=== PATIENT | female | born 1990 | race Native Hawaiian/Other Pacific Islander ===

== ENCOUNTER 2016-06-29 17:49 | Inpatient (IN) | payer OTHER ==
[2016-06-29 19:45] LABS: Hematocrit 37.4 % (30.3-42.9); Hemoglobin 12.4 gm/dl (10.1-14.3); Mean Corpuscular HGB Conc 33 % (30-34); Mean Corpuscular Hemoglobin 29 pg (28-32); Mean Corpuscular Volume 86 fl (79-97); Platelet Count 154 K/mm3 (140-440); Red Blood Count 4.34 M/mm3 (3.65-5.03); Red Cell Distribution Width 15.2 % (13.2-15.2); White Blood Count 11.2 K/mm3 (4.5-11.0)
[2016-06-29 20:05] LABS: Bacteria,Urine 1+ /HPF (Negative); Bilirubin,Urine NEG (Negative); Blood,Urine SM (Negative); Ketones,Urine NEG (Negative); Leukocyte Esterase,Urine SM (Negative); Mucus,Urine FEW /HPF; Nitrite,Urine NEG (Negative); Urobilinogen,Urine < 2.0 mg/dL (<2.0)
[2016-06-29 20:07] LABS: Alanine Aminotransferase 14 units/L (7-56); Lactate Dehydrogenase 249 units/L (91-180); Uric Acid 5.1 mg/dL (3.5-7.6)
[2016-06-29] MEDS ORDERED: XYLOCAINE 2% INFILTRATI ONE (22:31)
[2016-06-29] MEDS ORDERED: BRETHINE IVP PRN (22:31)
[2016-06-29] MEDS ORDERED: BRETHINE SUB-Q PRN (22:31)
[2016-06-29] MEDS ORDERED: ePHEDrine SULFATE IV PRN (22:31)
[2016-06-29] MEDS ORDERED: SUBLIMAZE IV PRN (22:31)
[2016-06-29] MEDS ORDERED: POLYCILLIN/NS 2 GM/100 ML 100 ML IV ONE (22:31)
[2016-06-29] MEDS ORDERED: STADOL IV PRN (22:31)
[2016-06-29] MEDS ORDERED: NARCAN 0.4 MG/1 ML IV PRN (22:31)
[2016-06-29] MEDS ORDERED: MINERAL OIL PO PRN (22:31)
[2016-06-29] MEDS ORDERED: ZOFRAN IV PRN (22:31)
[2016-06-29] MEDS ORDERED: MAGNESIUM SULFATE 4GM/100ML 100 ML IV ONE (22:38)
[2016-06-29] MEDS ORDERED: PITOCin/NS 30 UNIT/500ML 500 ML IV SCH ×2 (23:00)
[2016-06-29] MEDS: LACTATED RINGERS 1,000 ML IV SCH (23:20)
[2016-06-29] MEDS: CYTOTEC VAGINAL SCH (23:37)
[2016-06-29] MEDS: MAGNESIUM SULFATE 40GM/1000ML 1,000 ML IV SCH (23:51)
[2016-06-30 00:45] LABS: Hematocrit 36.8 % (30.3-42.9); Hemoglobin 12.2 gm/dl (10.1-14.3); Mean Corpuscular HGB Conc 33 % (30-34); Mean Corpuscular Hemoglobin 28 pg (28-32); Mean Corpuscular Volume 86 fl (79-97); Platelet Count 154 K/mm3 (140-440); Red Blood Count 4.29 M/mm3 (3.65-5.03); Red Cell Distribution Width 14.9 % (13.2-15.2); White Blood Count 11.2 K/mm3 (4.5-11.0)
[2016-06-30] MEDS: AMBIEN PO PRN ×2 (00:59→21:08)
[2016-06-30] MEDS: CYTOTEC VAGINAL SCH (04:15)
[2016-06-30] MEDS ORDERED: PITOCin/NS 30 UNIT/500ML 500 ML IV SCH (06:00)
[2016-06-30] MEDS: POLYCILLIN/NS 1 GM/50 ML 50 ML IV SCH ×4 (07:46→21:10)
[2016-06-30] MEDS: CYTOTEC VG PRN ×2 (10:05→15:21)
--- NOTE | 2016-06-30 11:19 | History and Physical Report ---
History of Present Illness Date of examination: 06/30/16 Date of admission: 06/29/16 21:05 Chief complaint: Pt sent form [facility] for elevated BP. Hx of chronic HTN, diastolics noted to be 110s in triage pa admitted for induction. Past History - Obstetrical History : 2 Medications and Allergies Allergies Allergy/AdvReac Type Severity Reaction Status Date / Time No Known Allergies Allergy Unverified 06/04/16 15:13 Home Medications Medication Instructions Recorded Confirmed Last Taken Type Methyldopa [Aldomet] 500 mg PO BID 06/10/16 06/10/16 06/09/16 19:28 History Vit No.130/Iron/FA 1 tab PO DAILY 06/10/16 06/10/16 06/08/16 21:00 History [ Tablet] 1 tab Active Meds: Active Medications Butorphanol Tartrate (Stadol) 2 mg IV Q2H PRN PRN Reason: Pain , Severe (7-10) Fentanyl (Sublimaze) 100 mcg IV Q2H PRN PRN Reason: Labor Pain Ampicillin Sodium (Polycillin/Ns 1 Gm/50 Ml) 50 mls @ 100 mls/hr IV Q4H MARCO PRN Reason: Protocol Last Admin: 06/30/16 07:46 Dose: 100 mls/hr Lactated Ringer's (Lactated Ringers) 1,000 mls @ 125 mls/hr IV DIRECT MARCO Last Admin: 06/29/16 23:20 Dose: 125 mls/hr Magnesium Sulfate (Magnesium Sulfate 40gm/1000ml) 1,000 mls @ 50 mls/hr IV DIRECT MARCO PRN Reason: 2 GM/HR Last Admin: 06/29/16 23:51 Dose: 50 mls/hr Oxytocin/Sodium Chloride (Pitocin/Ns 20 Unit/1000ml Drip) 1,000 mls @ 125 mls/ hr IV DIRECT MARCO Mineral Oil (Mineral Oil) 30 ml PO QHS PRN PRN Reason: Constipation Misoprostol (Cytotec) 25 mcg VG Q4H PRN PRN Reason: Labor Induction Last Admin: 06/30/16 10:05 Dose: 25 mcg Naloxone HCl (Narcan 0.4 Mg/1 Ml) 0.1 mg IV Q2MIN PRN PRN Reason: Res Rate </= 8 or 02 SAT < 92% Ondansetron HCl (Zofran) 4 mg IV Q8H PRN PRN Reason: Nausea And Vomiting Zolpidem Tartrate (Ambien) 10 mg PO QHS PRN PRN Reason: Insomnia Last Admin: 06/30/16 00:59 Dose: 10 mg Review of Systems All systems: negative - Vital Signs Vital signs: Vital Signs Pulse BP Pulse Ox 197 H 157/114 82 L 06/29/16 18:23 06/29/16 18:23 06/29/16 18:23 Temp Pulse Resp BP Pulse Ox 97.9 F 96 H 16 136/98 97 06/30/16 07:49 06/30/16 11:11 06/30/16 07:49 06/30/16 11:10 06/30/16 11:11 - Physical Exam Breasts: Positive: deferred Cardiovascular: Regular rate, Normal S1, Normal S2 Abdomen: Positive: normal appearance, soft, normal bowel sounds. Negative: distention, tenderness Vulva: both: normal Vagina: Positive: normal moisture. Negative: discharge Cervix: Negative: lesion, discharge Uterus: Positive: normal size, normal contour Adnexa: both: normal Anus/Rectum: Positive: normal perianal skin, heme negative. Negative: rectal mass, hemorrhoids Extremities: Deep Tendon Reflex Grade: Normal +2 - Obstetrical FHR: category 1 Uterine Contraction Monitor Mode: External Cervical Dilatation: 0 Cervical Effacement Percentage: 0 station: -3 Uterine Contraction Pattern: Absent Results Result Diagrams: 06/29/16 23:20 06/29/16 19:14 Abnormal lab results 06/29/16 06/29/16 06/29/16 Range/Units 19:14 19:14 23:20 WBC 11.2 H 11.2 H (4.5-11.0) K/mm3 Creatinine 0.5 L (0.7-1.2) mg/dL Magnesium (1.7-2.3) mg/dL Lactate Dehydrogenase 249 H (91-180) units/L 06/30/16 Range/Units 05:05 WBC (4.5-11.0) K/mm3 Creatinine (0.7-1.2) mg/dL Magnesium 5.3 H (1.7-2.3) mg/dL Lactate Dehydrogenase (91-180) units/L All other labs normal. Assessment and Plan iup at 37 weeks, chronic htn with acute elevation, PIH superimposed.p plan Magnesium sulfate and induction of labor
--- NOTE | 2016-06-30 11:30 | Event Note ---
Date: 06/30/16 pt complaining of pelvic pain. pt denies leg pain. Pt informed in detail of the plan of care. questions answered. Magnesium level is 5.3. current one now pending.
[2016-06-30] MEDS: TYLENOL PO PRN (12:24)
[2016-06-30] MEDS: ALDOMET PO SCH ×2 (14:07→21:08)
[2016-06-30] MEDS: LACTATED RINGERS 1,000 ML IV SCH (15:53)
[2016-06-30] MEDS: MAGNESIUM SULFATE 40GM/1000ML 1,000 ML IV SCH ×2 (17:45→21:10)
[2016-06-30] MEDS: APRESOLINE IV PRN (17:58)
[2016-07-01] MEDS: PITOCin/NS 30 UNIT/500ML 500 ML IV SCH ×6 (02:13→14:42)
[2016-07-01] MEDS: POLYCILLIN/NS 1 GM/50 ML 50 ML IV SCH ×4 (02:13→15:05)
[2016-07-01] MEDS: TYLENOL PO PRN ×2 (04:42→09:56)
[2016-07-01] MEDS: ALDOMET PO SCH ×3 (06:05→22:33)
--- NOTE | 2016-07-01 07:57 | Progress Note ---
Subjective - Subjective Date of service: 07/01/16 Principal diagnosis: iup at term, chronic HTN with superimposed PIH Interval history: pt currently on pitocin, contractions q 2-6 min. Bp diastolics in 90's Patient reports: movement normal, contractions Objective - Vital Signs Vital Signs: Vital Signs - 12hr 06/30/16 06/30/16 06/30/16 19:56 20:01 20:06 Pulse Rate 106 H 101 H 106 H Blood Pressure O2 Sat by Pulse 97 97 97 Oximetry 06/30/16 06/30/16 06/30/16 20:11 20:13 20:16 Pulse Rate 104 H 106 H 106 H Blood Pressure 138/93 O2 Sat by Pulse 97 96 Oximetry 06/30/16 06/30/16 06/30/16 20:21 20:26 20:31 Pulse Rate 105 H 113 H 107 H Blood Pressure O2 Sat by Pulse 97 97 97 Oximetry 06/30/16 06/30/16 06/30/16 20:36 20:41 20:44 Pulse Rate 107 H 107 H 112 H Blood Pressure 137/94 O2 Sat by Pulse 97 97 Oximetry 06/30/16 06/30/16 06/30/16 20:46 20:51 20:56 Pulse Rate 110 H 108 H 109 H Blood Pressure O2 Sat by Pulse 97 97 97 Oximetry 06/30/16 06/30/16 06/30/16 21:01 21:06 21:08 Pulse Rate 107 H 111 H 111 H Blood Pressure 137/94 O2 Sat by Pulse 97 97 Oximetry 06/30/16 06/30/16 06/30/16 21:11 21:13 21:16 Pulse Rate 111 H 109 H 112 H Blood Pressure 142/97 O2 Sat by Pulse 97 97 Oximetry 06/30/16 06/30/16 06/30/16 21:21 21:26 21:31 Pulse Rate 111 H 108 H 107 H Blood Pressure O2 Sat by Pulse 98 97 98 Oximetry 06/30/16 06/30/16 06/30/16 21:36 21:41 21:43 Pulse Rate 108 H 112 H 103 H Blood Pressure 156/104 O2 Sat by Pulse 98 97 Oximetry 06/30/16 06/30/16 06/30/16 21:46 21:51 21:56 Pulse Rate 104 H 111 H 106 H Blood Pressure O2 Sat by Pulse 98 98 97 Oximetry 06/30/16 06/30/16 06/30/16 22:01 22:06 22:11 Pulse Rate 108 H 107 H 106 H Blood Pressure O2 Sat by Pulse 97 97 97 Oximetry 06/30/16 06/30/16 06/30/16 22:13 22:16 22:21 Pulse Rate 111 H 109 H 107 H Blood Pressure 130/89 O2 Sat by Pulse 97 97 Oximetry 06/30/16 06/30/16 06/30/16 22:26 22:31 22:36 Pulse Rate 105 H 107 H 106 H Blood Pressure O2 Sat by Pulse 97 97 97 Oximetry 06/30/16 06/30/16 06/30/16 22:41 22:43 22:46 Pulse Rate 104 H 104 H 105 H Blood Pressure 138/93 O2 Sat by Pulse 97 97 Oximetry 06/30/16 06/30/16 06/30/16 22:51 22:56 23:01 Pulse Rate 102 H 104 H 111 H Blood Pressure O2 Sat by Pulse 97 97 97 Oximetry 06/30/16 06/30/16 06/30/16 23:06 23:11 23:13 Pulse Rate 119 H 123 H 114 H Blood Pressure 141/99 O2 Sat by Pulse 97 98 Oximetry 06/30/16 06/30/16 06/30/16 23:16 23:21 23:26 Pulse Rate 119 H 113 H 107 H Blood Pressure O2 Sat by Pulse 97 97 96 Oximetry 06/30/16 06/30/16 06/30/16 23:31 23:36 23:41 Pulse Rate 107 H 110 H 107 H Blood Pressure O2 Sat by Pulse 96 96 97 Oximetry 06/30/16 06/30/16 06/30/16 23:43 23:46 23:51 Pulse Rate 106 H 114 H 114 H Blood Pressure 154/97 O2 Sat by Pulse 97 97 Oximetry 06/30/16 07/01/16 07/01/16 23:56 00:01 00:06 Pulse Rate 113 H 115 H 102 H Blood Pressure O2 Sat by Pulse 97 97 97 Oximetry 07/01/16 07/01/16 07/01/16 00:11 00:13 00:16 Pulse Rate 107 H 103 H 104 H Blood Pressure 149/94 O2 Sat by Pulse 97 96 Oximetry 07/01/16 07/01/16 07/01/16 00:21 00:26 00:31 Pulse Rate 110 H 107 H 111 H Blood Pressure O2 Sat by Pulse 97 96 97 Oximetry 07/01/16 07/01/16 07/01/16 00:36 00:41 00:43 Pulse Rate 101 H 100 H 100 H Blood Pressure 164/101 O2 Sat by Pulse 96 97 Oximetry 07/01/16 07/01/16 07/01/16 00:46 00:51 00:56 Pulse Rate 101 H 100 H 98 H Blood Pressure O2 Sat by Pulse 96 96 96 Oximetry 07/01/16 07/01/16 07/01/16 01:01 01:06 01:11 Pulse Rate 101 H 113 H 110 H Blood Pressure O2 Sat by Pulse 96 95 97 Oximetry 07/01/16 07/01/16 07/01/16 01:14 01:15 01:16 Pulse Rate 102 H 102 H 109 H Blood Pressure 140/95 145/99 O2 Sat by Pulse 97 Oximetry 07/01/16 07/01/16 07/01/16 01:21 01:26 01:31 Pulse Rate 105 H 104 H 108 H Blood Pressure O2 Sat by Pulse 97 97 97 Oximetry 07/01/16 07/01/16 07/01/16 01:36 01:41 01:43 Pulse Rate 102 H 102 H 111 H Blood Pressure 143/102 O2 Sat by Pulse 97 97 Oximetry 07/01/16 07/01/16 07/01/16 01:46 01:51 01:56 Pulse Rate 103 H 106 H 106 H Blood Pressure O2 Sat by Pulse 97 97 97 Oximetry 07/01/16 07/01/16 07/01/16 02:01 02:06 02:11 Pulse Rate 106 H 109 H 110 H Blood Pressure O2 Sat by Pulse 97 97 97 Oximetry 07/01/16 07/01/16 07/01/16 02:13 02:16 02:21 Pulse Rate 112 H 105 H 107 H Blood Pressure 135/89 O2 Sat by Pulse 97 96 Oximetry 07/01/16 07/01/16 07/01/16 02:26 02:31 02:36 Pulse Rate 111 H 109 H 111 H Blood Pressure O2 Sat by Pulse 97 97 97 Oximetry 07/01/16 07/01/16 07/01/16 02:41 02:43 02:46 Pulse Rate 107 H 105 H 105 H Blood Pressure 140/89 O2 Sat by Pulse 97 97 Oximetry 07/01/16 07/01/16 07/01/16 02:51 02:56 03:01 Pulse Rate 106 H 107 H 107 H Blood Pressure O2 Sat by Pulse 97 97 97 Oximetry 07/01/16 07/01/16 07/01/16 03:06 03:11 03:13 Pulse Rate 106 H 106 H 103 H Blood Pressure 138/86 O2 Sat by Pulse 97 96 Oximetry 07/01/16 07/01/16 07/01/16 03:16 03:21 03:26 Pulse Rate 102 H 113 H 109 H Blood Pressure O2 Sat by Pulse 97 97 97 Oximetry 07/01/16 07/01/16 07/01/16 03:31 03:36 03:41 Pulse Rate 106 H 112 H 107 H Blood Pressure O2 Sat by Pulse 97 97 97 Oximetry 07/01/16 07/01/16 07/01/16 03:44 03:46 03:51 Pulse Rate 111 H 106 H 103 H Blood Pressure 137/89 O2 Sat by Pulse 97 97 Oximetry 07/01/16 07/01/16 07/01/16 03:56 04:01 04:06 Pulse Rate 108 H 101 H 101 H Blood Pressure O2 Sat by Pulse 97 97 97 Oximetry 07/01/16 07/01/16 07/01/16 04:11 04:16 04:21 Pulse Rate 102 H 99 H 101 H Blood Pressure O2 Sat by Pulse 97 96 97 Oximetry 07/01/16 07/01/16 07/01/16 04:26 04:31 04:32 Pulse Rate 99 H 104 H 101 H Blood Pressure 144/97 O2 Sat by Pulse 97 97 Oximetry 07/01/16 07/01/16 07/01/16 04:36 04:41 04:43 Pulse Rate 106 H 106 H 104 H Blood Pressure 152/85 O2 Sat by Pulse 97 97 Oximetry 07/01/16 07/01/16 07/01/16 04:46 04:51 04:56 Pulse Rate 107 H 102 H 106 H Blood Pressure O2 Sat by Pulse 96 97 96 Oximetry 07/01/16 07/01/16 07/01/16 05:01 05:06 05:11 Pulse Rate 98 H 98 H 97 H Blood Pressure O2 Sat by Pulse 96 96 96 Oximetry 07/01/16 07/01/16 07/01/16 05:13 05:16 05:21 Pulse Rate 99 H 98 H 100 H Blood Pressure 142/98 O2 Sat by Pulse 96 97 Oximetry 07/01/16 07/01/16 07/01/16 05:26 05:31 05:36 Pulse Rate 94 H 94 H 96 H Blood Pressure O2 Sat by Pulse 97 97 97 Oximetry 07/01/16 07/01/16 07/01/16 05:41 05:45 05:46 Pulse Rate 95 H 105 H 102 H Blood Pressure 160/98 O2 Sat by Pulse 97 97 Oximetry 07/01/16 07/01/16 07/01/16 05:51 05:56 06:01 Pulse Rate 110 H 104 H 106 H Blood Pressure O2 Sat by Pulse 97 96 97 Oximetry 07/01/16 07/01/16 07/01/16 06:05 06:06 06:11 Pulse Rate 103 H 100 H 104 H Blood Pressure 160/98 O2 Sat by Pulse 97 97 Oximetry 07/01/16 07/01/16 07/01/16 06:14 06:16 06:21 Pulse Rate 100 H 98 H 98 H Blood Pressure 138/92 O2 Sat by Pulse 97 97 Oximetry 07/01/16 07/01/16 07/01/16 06:26 06:31 06:36 Pulse Rate 99 H 96 H 98 H Blood Pressure O2 Sat by Pulse 97 97 97 Oximetry 07/01/16 07/01/16 07/01/16 06:41 06:44 06:46 Pulse Rate 100 H 95 H 100 H Blood Pressure 155/95 O2 Sat by Pulse 97 96 Oximetry 07/01/16 07/01/16 07/01/16 06:51 06:56 07:01 Pulse Rate 100 H 111 H 109 H Blood Pressure O2 Sat by Pulse 97 96 97 Oximetry 07/01/16 07/01/16 07/01/16 07:06 07:11 07:14 Pulse Rate 105 H 109 H 106 H Blood Pressure 154/96 O2 Sat by Pulse 97 96 Oximetry 07/01/16 07/01/16 07/01/16 07:16 07:21 07:26 Pulse Rate 108 H 109 H 98 H Blood Pressure O2 Sat by Pulse 97 97 96 Oximetry 07/01/16 07/01/16 07/01/16 07:31 07:36 07:41 Pulse Rate 98 H 95 H 98 H Blood Pressure O2 Sat by Pulse 96 96 96 Oximetry 07/01/16 07/01/16 07:44 07:46 Pulse Rate 95 H 99 H Blood Pressure 177/106 O2 Sat by Pulse 96 Oximetry - Exam Breasts: deferred Cardiovascular: Regular rate, Normal S1, Normal S2 Lungs: Clear to auscultation Abdomen: Present: normal appearance, soft. Absent: distention, tenderness Vulva: both: normal Uterus: Present: normal FHR: auscultation normal Uterine Contraction Monitor Mode: External Uterine Contraction Pattern: Irregular Uterine Contraction Intensity: Mild Deep Tendon Reflex Grade: Normal +2 - Labs Labs: Abnormal Labs 06/29/16 06/29/16 06/29/16 19:14 19:14 23:20 WBC 11.2 H 11.2 H Creatinine 0.5 L Magnesium Lactate Dehydrogenase 249 H 06/30/16 06/30/16 06/30/16 05:05 11:34 17:12 WBC Creatinine Magnesium 5.3 H 6.3 H 6.6 H Lactate Dehydrogenase 06/30/16 07/01/16 21:10 03:30 WBC Creatinine Magnesium 5.5 H 5.4 H Lactate Dehydrogenase Laboratory Results - last 24 hr 06/30/16 06/30/16 06/30/16 11:34 17:12 21:10 Magnesium 6.3 H 6.6 H 5.5 H 07/01/16 03:30 Magnesium 5.4 H
[2016-07-01] MEDS: LACTATED RINGERS 1,000 ML IV SCH ×2 (08:04→11:07)
[2016-07-01] MEDS: APRESOLINE IV PRN (10:00)
--- NOTE | 2016-07-01 10:20 | Event Note ---
Date: 07/01/16 patient examined and noted to be 80/2. cervix very anterior. Arom clear and fse placed. pt complaining of headache. Bp elevated . hydaliazine given. will continue to monitor closely, currently on pitocin. anticipate , but if Bp continue to worsen will perform c/s.
--- NOTE | 2016-07-01 10:47 | Anesthesia Consultation ---
Anesthesia Consult and Med Hx Date of service: 07/01/16 - Airway Anesthetic Teeth Evaluation: Good ROM Head & Neck: Adequate Mental/Hyoid Distance: Adequate - Pre-Operative Health Status ASA Pre-Surgery Classification: ASA2 Proposed Anesthetic Plan: Epidural, Spinal - Pulmonary Hx Asthma: No COPD: No Hx Pneumonia: No - Cardiovascular System Hx Hypertension: Yes (HTN, PIH) - Central Nervous System Hx Seizures: No Hx Psychiatric Problems: No - Endocrine Hx Renal Disease: No Hx End Stage Renal Disease: No Hx Hypothyroidism: No Hx Hyperthyroidism: No - Hematic Hx Anemia: No Hx Sickle Cell Disease: No - Other Systems Hx Alcohol Use: No
[2016-07-01 10:50] LABS: Hematocrit 37.8 % (30.3-42.9); Hemoglobin 12.3 gm/dl (10.1-14.3); Mean Corpuscular HGB Conc 33 % (30-34); Mean Corpuscular Hemoglobin 28 pg (28-32); Mean Corpuscular Volume 85 fl (79-97); Platelet Count 152 K/mm3 (140-440); Red Blood Count 4.42 M/mm3 (3.65-5.03); Red Cell Distribution Width 15.4 % (13.2-15.2); White Blood Count 12.6 K/mm3 (4.5-11.0)
[2016-07-01] MEDS ORDERED: ePHEDrine SULFATE IV PRN (10:50)
[2016-07-01] MEDS ORDERED: fentaNYL-BUPIV 2 MCG/ML-0.125% 100 ML EPIDURAL SCH (11:00)
[2016-07-01 11:03] LABS: Alanine Aminotransferase 9 units/L (7-56); Lactate Dehydrogenase 269 units/L (91-180); Uric Acid 5.6 mg/dL (3.5-7.6)
[2016-07-01] MEDS ORDERED: CYTOTEC PR ONE (15:49)
[2016-07-01] MEDS ORDERED: ZOFRAN IV PRN (15:51)
[2016-07-01] MEDS ORDERED: DERMOPLAST TP PRN (15:51)
[2016-07-01] MEDS ORDERED: TUCKS PAD TP PRN (15:51)
[2016-07-01] MEDS ORDERED: DULCOLAX PR PRN (15:51)
[2016-07-01] MEDS ORDERED: TYLENOL PO PRN (15:51)
[2016-07-01] MEDS ORDERED: BENADRYL PO PRN (15:51)
[2016-07-01] MEDS ORDERED: LANSINOH TP PRN (15:51)
[2016-07-01] MEDS ORDERED: PHENERGAN PR PRN (15:51)
[2016-07-01] MEDS ORDERED: PHENERGAN PO PRN (15:51)
[2016-07-01] MEDS ORDERED: MILK OF MAGNESIA PO PRN (15:51)
[2016-07-01] MEDS: PITOCin/NS 20 UNIT/1000ML DRIP 1,000 ML IV SCH (15:58)
[2016-07-01] MEDS ORDERED: MAGNESIUM SULFATE 40GM/1000ML 1,000 ML IV SCH (16:00)
[2016-07-01] MEDS ORDERED: SODIUM CHLORIDE FLUSH SYRINGE 10 ML IV NR (16:00)
[2016-07-01] MEDS ORDERED: PITOCin/NS 20 UNIT/1000ML DRIP 1,000 ML IV SCH (16:00)
--- NOTE | 2016-07-01 16:03 | Procedure Note ---
OB Delivery Note - Delivery Date of Delivery: 07/01/16 Surgeon: MAI ROME Estimated blood loss: 200cc - Vaginal Delivery presentation: vertex Delivery position: OA Intrapartum events: none Delivery induction: oxytocin Delivery monitor: internal FHT, internal uterine Route of delivery: Delivery placenta: spontaneous Delivery cord: 3 umbilical vessels Episiotomy: none Delivery laceration: none Anesthesia: epidural - Infant A Gender: Male (wt-6-4oz, apgars 8 & 9. infant and mother tolerated the procedure well)
[2016-07-01] MEDS: MOTRIN PO SCH ×2 (17:10→22:35)
[2016-07-01] MEDS: PERCOCET 5/325 PO PRN ×2 (17:10→20:48)
[2016-07-02] MEDS: PITOCin/NS 20 UNIT/1000ML DRIP 1,000 ML IV SCH (00:40)
[2016-07-02] MEDS: PERCOCET 5/325 PO PRN ×2 (04:27→20:40)
[2016-07-02] MEDS: MOTRIN PO SCH ×4 (04:27→22:00)
[2016-07-02 05:53] LABS: Hematocrit 25.3 % (30.3-42.9); Hemoglobin 8.2 gm/dl (10.1-14.3)
--- NOTE | 2016-07-02 07:29 | Progress Note ---
Assessment and Plan Has been on post mag sulfate over 12 hours. will d/c and transfer to mother baby Subjective - Subjective Date of service: 07/02/16 Principal diagnosis: iup at term- delivered via , chronic HTN with superimposed PIH Interval history: post delivery BP improved 90/50's, pulse in 70's. will d/c mag sulfate. will continue to monitor BP Patient reports: appetite normal, voiding normally, pain well controlled [place]: doing well Objective - Vital Signs Latest vital signs: Vital Signs Temp Pulse Pulse Resp BP BP Pulse Ox 07/02/16 07:13 76 89/52 07/02/16 06:13 77 103/58 07/02/16 05:13 76 95/56 07/02/16 04:20 97.8 F 07/02/16 04:13 79 98/54 07/02/16 03:13 77 93/51 07/02/16 02:13 82 96/53 07/02/16 01:13 87 92/53 07/02/16 00:37 93 H 90/51 07/02/16 00:13 86 88/53 07/01/16 23:13 96 H 92/57 07/01/16 22:13 107 H 95/54 07/01/16 21:00 115 H 107/57 07/01/16 20:46 117 H 122/66 07/01/16 20:30 118 H 134/76 07/01/16 20:15 120 H 119/72 07/01/16 20:00 116 H 125/80 07/01/16 19:46 117 H 126/77 07/01/16 19:30 121 H 113/69 07/01/16 19:16 123 H 111/67 07/01/16 19:00 113 H 124/80 07/01/16 18:45 115 H 119/77 07/01/16 18:30 115 H 121/80 07/01/16 18:16 126 H 120/76 07/01/16 18:00 126 H 126 H 18 136/90 136/90 07/01/16 17:46 112 H 134/91 07/01/16 17:30 115 H 115 H 18 144/104 144/104 07/01/16 17:15 126 H 147/101 07/01/16 17:10 20 07/01/16 17:08 115 H 98 07/01/16 17:03 116 H 98 07/01/16 17:00 110 H 110 H 18 149/105 149/105 98 07/01/16 16:58 111 H 98 07/01/16 16:53 112 H 98 07/01/16 16:48 112 H 99 07/01/16 16:45 104 H 104 H 18 165/108 165/108 99 07/01/16 16:43 105 H 95 07/01/16 16:38 104 H 98 07/01/16 16:33 115 H 98 07/01/16 16:30 107 H 107 H 18 155/108 155/108 98 07/01/16 16:28 109 H 97 07/01/16 16:23 108 H 98 07/01/16 16:18 105 H 98 07/01/16 16:15 103 H 110 H 18 149/105 149/105 97 07/01/16 16:13 112 H 97 07/01/16 16:08 105 H 97 07/01/16 16:03 109 H 97 07/01/16 16:00 122 H 108 H 18 143/98 143/98 97 07/01/16 15:59 92 H 83 L 07/01/16 15:58 115 H 98 07/01/16 15:53 102 H 97 07/01/16 15:48 111 H 97 07/01/16 15:46 118 H 145/99 07/01/16 15:45 98.3 F 110 H 18 145/99 97 07/01/16 15:31 112 H 168/108 07/01/16 15:29 113 H 93 07/01/16 15:27 113 H 97 07/01/16 15:22 107 H 96 07/01/16 15:17 109 H 160/103 96 07/01/16 15:12 105 H 97 07/01/16 15:07 104 H 98 07/01/16 15:02 104 H 97 07/01/16 15:01 96 H 162/104 07/01/16 14:57 104 H 98 07/01/16 14:52 99 H 98 07/01/16 14:47 90 97 07/01/16 14:46 92 H 134/88 07/01/16 14:42 87 97 07/01/16 14:38 105 H 121/74 07/01/16 14:37 84 96 07/01/16 14:32 85 96 07/01/16 14:30 82 121/74 07/01/16 14:27 89 96 07/01/16 14:22 85 97 07/01/16 14:17 88 96 07/01/16 14:15 86 117/77 07/01/16 14:12 86 96 07/01/16 14:07 82 96 07/01/16 14:02 88 95 07/01/16 14:01 83 114/76 07/01/16 13:57 87 96 07/01/16 13:52 83 96 07/01/16 13:47 84 96 07/01/16 13:45 88 115/73 07/01/16 13:42 85 97 07/01/16 13:37 87 96 07/01/16 13:32 85 96 07/01/16 13:30 86 110/69 07/01/16 13:27 86 96 07/01/16 13:22 91 H 96 07/01/16 13:17 90 97 07/01/16 13:15 85 119/74 07/01/16 13:12 96 H 97 07/01/16 13:07 90 97 07/01/16 13:02 94 H 97 07/01/16 13:00 93 H 123/77 07/01/16 12:57 97 H 97 07/01/16 12:52 95 H 97 07/01/16 12:47 98 H 97 07/01/16 12:45 97 H 129/81 07/01/16 12:42 97 H 97 07/01/16 12:37 96 H 97 07/01/16 12:32 98 H 97 07/01/16 12:31 98 H 125/79 07/01/16 12:27 104 H 97 07/01/16 12:22 100 H 97 07/01/16 12:17 106 H 18 113/67 97 07/01/16 12:15 105 H 113/67 07/01/16 12:12 103 H 97 07/01/16 12:07 110 H 97 07/01/16 12:02 108 H 96 07/01/16 12:00 103 H 115/62 07/01/16 11:57 104 H 96 07/01/16 11:55 108 H 111/59 07/01/16 11:52 108 H 97 07/01/16 11:50 115 H 109/56 07/01/16 11:48 116 H 108/55 07/01/16 11:47 117 H 97 07/01/16 11:46 112 H 118/66 07/01/16 11:44 123 H 113/60 07/01/16 11:42 126 H 118/66 96 07/01/16 11:40 114 H 127/75 07/01/16 11:39 117 H 126/79 07/01/16 11:37 114 H 98 07/01/16 11:32 101 H 98 07/01/16 11:30 98.1 F 110 H 105 H 18 172/102 172/102 98 07/01/16 11:27 105 H 99 07/01/16 11:17 92 H 97 07/01/16 11:13 90 162/111 07/01/16 11:12 94 H 97 07/01/16 11:08 76 84 07/01/16 11:07 98 H 97 07/01/16 11:02 99 H 98 07/01/16 11:01 92 H 159/109 07/01/16 10:57 99 H 98 07/01/16 10:52 97 H 97 07/01/16 10:47 94 H 97 07/01/16 10:43 99 H 159/109 93 07/01/16 10:42 93 H 97 07/01/16 10:37 103 H 98 07/01/16 10:32 99 H 99 07/01/16 10:27 101 H 97 07/01/16 10:22 99 H 98 07/01/16 10:17 103 H 97 07/01/16 10:14 100 H 165/112 93 07/01/16 10:12 111 H 97 07/01/16 10:07 120 H 99 07/01/16 10:02 103 H 98 07/01/16 10:00 101 H 165/111 07/01/16 09:57 103 H 97 07/01/16 09:52 103 H 97 07/01/16 09:47 96 H 96 07/01/16 09:45 102 H 165/111 07/01/16 09:43 108 H 91 07/01/16 09:42 98 H 96 07/01/16 09:37 93 H 96 07/01/16 09:32 99 H 96 07/01/16 09:27 97 H 95 07/01/16 09:22 95 H 95 07/01/16 09:17 93 H 96 07/01/16 09:13 94 H 165/103 07/01/16 09:12 94 H 96 07/01/16 09:11 81 93 07/01/16 09:06 94 H 96 07/01/16 09:01 102 H 96 07/01/16 08:56 104 H 97 07/01/16 08:52 106 H 84 07/01/16 08:51 100 H 96 07/01/16 08:46 101 H 97 07/01/16 08:44 96 H 157/99 07/01/16 08:43 97 H 91 07/01/16 08:41 106 H 97 07/01/16 08:36 106 H 96 07/01/16 08:35 59 L 89 07/01/16 08:31 100 H 96 07/01/16 08:26 107 H 97 07/01/16 08:21 99 H 98 07/01/16 08:16 104 H 97 07/01/16 08:13 108 H 147/98 07/01/16 08:11 104 H 97 07/01/16 08:08 98.2 F 105 H 108 H 18 142/88 142/88 98 07/01/16 08:06 102 H 98 07/01/16 07:56 103 H 97 07/01/16 07:52 100 H 156/93 07/01/16 07:51 109 H 97 07/01/16 07:46 99 H 96 07/01/16 07:44 95 H 177/106 07/01/16 07:41 98 H 96 07/01/16 07:36 95 H 96 07/01/16 07:31 98 H 96 07/01/16 07:26 98 H 96 Intake and Output 07/01/16 07/02/16 07/02/16 22:59 06:59 14:59 Intake Total 50 1390 Output Total 300 290 Balance -250 1100 Intake: IV 50 1390 Polycillin/Ns 1 gm/50 ml 50 50 ml @ 100 mls/hr IV Q4H [facility] Rx#:[id number] PITOCin/NS 20 UNIT/1000ML 1315 DRIP 1,000 ML @ 125 mls/ hr IV DIRECT [facility] Rx#: [id number] Magnesium Sulfate 40Gm/ 75 1000ML 1,000 ml @ 1 GM/HR 25 mls/hr IV DIRECT [facility] Rx#:[id number] Oral 0 Output: Urine 300 290 Indwelling Catheter 300 290 Other: Total, Intake Amount 0 Total, Output Amount 300 50 Estimated Blood Loss 200 - Exam Breasts: Present: deferred Cardiovascular: Present: Regular rate, Normal S1, Normal S2 Lungs: Present: Clear to auscultation Abdomen: Present: normal appearance, soft Vulva: both: normal Uterus: Present: normal, firm Extremities: Present: normal Deep Tendon Reflex Grade: Normal +2 Incision: Present: normal, dry, intact - Labs Labs: Abnormal lab results 07/01/16 07/01/16 07/01/16 Range/Units 09:30 10:35 10:35 WBC 12.6 H (4.5-11.0) K/mm3 Hgb (10.1-14.3) gm/dl Hct (30.3-42.9) % RDW 15.4 H (13.2-15.2) % Creatinine 0.6 L (0.7-1.2) mg/dL Magnesium 5.4 H (1.7-2.3) mg/dL Lactate Dehydrogenase 269 H (91-180) units/L 07/01/16 07/02/16 07/02/16 Range/Units 19:55 00:00 05:30 WBC (4.5-11.0) K/mm3 Hgb 8.2 L D (10.1-14.3) gm/dl Hct 25.3 L D (30.3-42.9) % RDW (13.2-15.2) % Creatinine (0.7-1.2) mg/dL Magnesium 5.1 H 5.4 H (1.7-2.3) mg/dL Lactate Dehydrogenase (91-180) units/L 07/02/16 Range/Units 05:30 WBC (4.5-11.0) K/mm3 Hgb (10.1-14.3) gm/dl Hct (30.3-42.9) % RDW (13.2-15.2) % Creatinine (0.7-1.2) mg/dL Magnesium 5.6 H (1.7-2.3) mg/dL Lactate Dehydrogenase (91-180) units/L
[2016-07-02] MEDS: ALDOMET PO SCH ×2 (10:18→22:00)
--- NOTE | 2016-07-02 19:20 | Discharge Summary ---
Providers - Providers Date of Admission: 06/29/16 21:05 Date of discharge: 07/03/16 Attending physician: MAI ROME Primary care physician: MAI ROME Hospitalization Reason for admission: induction of labor Delivery: Procedure details: s/p after induction for PIH. pt did well. Episiotomy: none Laceration: none Other procedures: none complications: none Discharge diagnosis: IUP at term delivered [place] baby: male Hospital course: s/p magnesuim treatment, and hydraline prn for blood pressure Condition at discharge: Good Disposition: DISCHARGED TO HOME OR SELFCARE - Discharge Diagnoses (1) Hypertension affecting Status: Acute (2) (normal spontaneous vaginal delivery) Status: Acute (3) Anemia Status: Acute Comment: anemia secondary to acute blood loss from delivery Plan - Discharge Medications Prescriptions: Ferrous Sulfate [Feosol 325 MG tab] 325 mg PO BID #60 tablet Ibuprofen [Motrin 800 MG tab] 800 mg PO Q8HR PRN #30 tablet PRN Reason: Pain Methyldopa [Aldomet] 500 mg PO BID #60 tablet oxyCODONE /ACETAMINOPHEN [Percocet 5/325] 1 tab PO Q6HR PRN #30 tablet PRN Reason: Pain - Provider Discharge Summary Activity: routine, no sex for 6 weeks, no heavy lifting 4 weeks, no strenuous exercise Diet: routine Instructions: routine Additional instructions: [] Smoking cessation referral if applicable(refer to patient education folder for contact #) [] Refer to [facility]'s [facility] Booklet Call your doctor immediately for: * Fever > 100.5 * Heavy vaginal bleeding ( >1 pad per hour) * Severe persistent headache * Shortness of breath * Reddened, hot, painful area to leg or breast * Drainage or odor from incision. * Keep incision clean and dry at all times and follow doctor's instructions regarding bathing/showering - Follow up plan Follow up: MAI ROME MD [Primary Care Provider] - 7 Days
[2016-07-03] MEDS: MOTRIN PO SCH (04:00)
[2016-07-03] MEDS ORDERED: BOOSTRIX IM ONE (06:30)
[2016-07-03 10:25] VITALS: BP 128/80
[2016-07-03] MEDS: ALDOMET PO SCH (11:00)
== END 2016-07-03 11:30 | disposition home or self-care (01) | DRG 774 ==
LOC: TRG 17:49 → APU 21:05 → LD 22:42 → OB 07-02 08:05
PROVIDERS: ADMIT Specialist; ATTEND Specialist
PROC: 10E0XZZ Delivery of Products of Conception, External Approach (ICD-10-PCS; principal; 2016-07-01)
PROC: 3E033VJ Introduction of Other Hormone into Peripheral Vein, Percutaneous Approach (ICD-10-PCS; 2016-07-01)
PROC: 10907ZC Drainage of Amniotic Fluid, Therapeutic from Products of Conception, Via Natural or Artificial Opening (ICD-10-PCS; 2016-07-01)
PROC: 3E0S3CZ (ICD-10-PCS; 2016-07-01)
PROC: 00HU33Z Insertion of Infusion Device into Spinal Canal, Percutaneous Approach (ICD-10-PCS; 2016-07-01)
DX: O13.4 Gestational [pregnancy-induced] hypertension without significant proteinuria, complicating childbirth (principal); D62 Acute posthemorrhagic anemia; O10.92 Unspecified pre-existing hypertension complicating childbirth; O90.81 Anemia of the puerperium; Z3A.37 37 weeks gestation of pregnancy; Z37.0 Single live birth
CPT/HCPCS: 36415; 81001; 82565; 83615; 83735; 84450; 84460; 84550; 85014; 85018; 85027; 86850; 86900; 86901; 88307; 90471; 90715; A6250; J0290; J0360; J2405; J2590; J3475; J7120

== ENCOUNTER 2021-11-19 15:58 | Observation (INO) | payer OTHER ==
[2021-11-19] MEDS ORDERED: ONDANSETRON 4 MG/2 ML INJ IV ONE (18:52)
[2021-11-19] MEDS ORDERED: SODIUM CHLORIDE 0.9% 1000 ML 1,000 ML IV ONE (18:52)
--- NOTE | 2021-11-19 19:02 | Emergency Department Report ---
ED HPI - General Chief complaint: High BP Stated complaint: HBP/18WKS Time Seen by Provider: 11/19/21 18:50 Source: patient Mode of arrival: Ambulatory Limitations: No Limitations - History of Present Illness Initial comments: 31 yo F at 18 weeks gestation who present with elevated blood pressure that is been going on for the last 4 days and progressively getting worse. Pt was seen at a clinic where she was started on Nifedipine 30 mg daily which she says has not help her blood pressure. She also reports front headache as well. She also reports nausea and vomiting as she could not hold or tolerated any meal since yesterday. No fever or chills reported. Pt says she just find out that she was 3 weeks ago because she was currently on depo shots. No other modifying or associated factors reported. - Related Data Home Medications Medication Instructions Recorded Confirmed Last Taken Methyldopa (Nf) [Aldomet] 500 mg PO BID 06/10/16 07/01/16 06/29/16 13:00 500 Vit No.130/Iron/Folic 1 tab PO DAILY 06/10/16 07/01/16 06/28/16 09:00 [ Tablet] 1 Previous Rx's Medication Instructions Recorded Last Taken Type Ferrous Sulfate [Feosol 325 MG tab] 325 mg PO BID #60 tablet 07/01/16 Unknown Rx Ibuprofen [Motrin 800 MG tab] 800 mg PO Q8HR PRN #30 tablet 07/01/16 Unknown Rx Methyldopa (Nf) [Aldomet] 500 mg PO BID #60 tablet 07/01/16 Unknown Rx oxyCODONE /ACETAMINOPHEN [Percocet 1 tab PO Q6HR PRN #30 tablet 07/01/16 Unknown Rx 5/325] Allergies Allergy/AdvReac Type Severity Reaction Status Date / Time No Known Allergies Allergy Verified 11/19/21 16:23 ED Review of Systems ROS: Stated complaint: HBP/18WKS Other details as noted in HPI Comment: All other systems reviewed and negative Gastrointestinal: other () Neurological: headache ED Past Medical Hx - Past Medical History Previous Medical History?: Yes Hx Hypertension: Yes (HTN, PIH) Hx Congestive Heart Failure: No Hx Diabetes: No Hx Renal Disease: No Hx Sickle Cell Disease: No Hx Seizures: No Hx Asthma: No Hx COPD: No - Social History Smoking Status: Never Smoker - Medications Home Medications: Home Medications Medication Instructions Recorded Confirmed Last Taken Type Methyldopa (Nf) [Aldomet] 500 mg PO BID 06/10/16 07/01/16 06/29/16 13:00 History 500 Vit No.130/Iron/Folic 1 tab PO DAILY 06/10/16 07/01/16 06/28/16 09:00 History [ Tablet] 1 Ferrous Sulfate [Feosol 325 MG tab] 325 mg PO BID #60 tablet 07/01/16 Unknown Rx Ibuprofen [Motrin 800 MG tab] 800 mg PO Q8HR PRN #30 tablet 07/01/16 Unknown Rx Methyldopa (Nf) [Aldomet] 500 mg PO BID #60 tablet 07/01/16 Unknown Rx oxyCODONE /ACETAMINOPHEN [Percocet 1 tab PO Q6HR PRN #30 tablet 07/01/16 Unknown Rx 5/325] ED Physical Exam - General Limitations: No Limitations General appearance: alert, in distress (due to pain ) - Head Head exam: Present: normal inspection - Eye Eye exam: Present: normal appearance Pupils: Present: normal accommodation - ENT ENT exam: Present: normal exam, normal orophraynx - Neck Neck exam: Present: normal inspection, full ROM. Absent: tenderness - Respiratory Respiratory exam: Present: normal lung sounds bilaterally. Absent: respiratory distress, accessory muscle use - Cardiovascular Cardiovascular Exam: Present: regular rate, normal rhythm, normal heart sounds - GI/Abdominal GI/Abdominal exam: Present: soft, normal bowel sounds, other ( with 18 cm ). Absent: distended, tenderness - Extremities Exam Extremities exam: Present: normal inspection, full ROM, normal capillary refill. Absent: tenderness, pedal edema, joint swelling - Back Exam Back exam: Present: normal inspection. Absent: tenderness, CVA tenderness (R), CVA tenderness (L) - Neurological Exam Neurological exam: Present: alert, oriented X3 - Psychiatric Psychiatric exam: Present: normal affect, normal mood - Skin Skin exam: Present: warm, normal color ED Course Vital Signs 11/19/21 11/19/21 11/19/21 16:18 20:08 20:09 Temperature 98.6 F Pulse Rate 99 H 79 79 Respiratory 14 16 Rate Blood Pressure 172/100 178/115 Blood Pressure 178/115 [Right] O2 Sat by Pulse 100 99 Oximetry - Reevaluation(s) Reevaluation #1: 11/19/21 19:09 here with [facility] and elevated blood pressure at 172/100 -- this is concerning for not limited to preeclampsia, migraine headache, gastroenteritis, and threatened --ectopic is unlikely as patient had [facility]-- will go ahead and order routine labs that includes CBC, CMP for electrolytes and LFTs, urinalysis for any infectious process. We will also check serum beta hCG and start patient on labetalol 20 mg for the hypertension and morphine for the headache. We also consulted [facility] for further evaluation and admission consideration. 11/19/21 19:12 Reevaluation #2: 11/19/21 20:44 Patient reports improvement in headache after giving the pain medication. Blood pressure is slightly better now at 164/110 mmHg. Lab reviewed and noted with slightly elevated white count at 16.3 which could be reactive also H&H of 15.4/47.6--patient is also noted with normal platelets and liver enzymes. At this point [facility] will be consulted for likely admission for blood pressure control. Reevaluation #3: 11/19/21 21:[address] Dawkins who suggested talking to whoever the initial Oral Surgery Physician that the patient is established with. Pt reports that she had seen Dr Fairchild. So Dr Fairchild will be contacted for further treatment of this hypertensive urgency. I paged Dr Fairchild who accept pt for further evaluation and treatment of her uncontrolled hypertension. She also informed me that patient has chronic hypertension and was on Metoprolol before she find out she was and that was changed to Nifedipine 30 mg PO daily. ED Medical Decision Making - Lab Data Result diagrams: 11/19/21 19:11 11/19/21 19:11 - EKG Data -: EKG Interpreted by Me EKG shows normal: sinus rhythm Rate: normal - EKG Data 11/19/21 19:18 Noted with normal sinus rhythm at a rate of 95 bpm, normal QTC with no ST elevation or depression in this normal ECG. Critical care attestation.: If time is entered above; I have spent that time in minutes in the direct care of this critically ill patient, excluding procedure time. ED Disposition Clinical Impression: Hypertensive urgency, Second trimester Preeclampsia Qualifiers: Trimester: second trimester Qualified Code(s): O14.92 - Unspecified pre- eclampsia, second trimester Migraine headache Qualifiers: Migraine type: unspecified Status migrainosus presence: without status migrainosus Intractability: not intractable Qualified Code(s): G43.909 - Migraine, unspecified, not intractable, without status migrainosus Disposition: 09 ADMITTED INPATIENT Is pt being admited?: No Does the pt Need Aspirin: No Condition: Stable Instructions: Hypertension (ED) Referrals: AVA FERGUSON MD [Primary Care Provider] - 3-5 Days Time of Disposition: 21:27 (Dr Fairchild accept pt for further evaluation and treatment )
[2021-11-19 19:37] LABS: Hematocrit 47.6 % (30.3-42.9); Hemoglobin 15.4 gm/dl (10.1-14.3); Mean Corpuscular HGB Conc 32 % (30-34); Mean Corpuscular Volume 88 fl (79-97); Red Blood Count 5.38 M/mm3 (3.65-5.03); Red Cell Distribution Width 14.5 % (13.2-15.2)
[2021-11-19 19:42] LABS: Platelet Count 257 K/mm3 (140-440)
[2021-11-19 19:46] LABS: INR 0.82 (0.87-1.13)
[2021-11-19 19:47] LABS: Partial Thromboplastin Time 24.7 Sec. (24.2-36.6)
[2021-11-19 20:00] LABS: Alanine Aminotransferase 18 units/L (7-56); Albumin 4.3 g/dL (3.9-5); Blood Urea Nitrogen 7 mg/dL (7-17); Calcium 9.3 mg/dL (8.4-10.2); Hemolysis Index 254
[2021-11-19 20:13] LABS: BUN/Creatinine Ratio 18
[2021-11-19 20:40] LABS: Total Cells Counted 100
[2021-11-19 20:41] LABS: Basophils % (Manual) 0 % (0.0-1.8); Eosinophils % (Manual) 0 % (0.0-4.3)
[2021-11-19 20:42] LABS: Large Platelets Few; RBC Morphology Normal
[2021-11-19 20:43] LABS: Platelet Estimate Cons
[2021-11-19] MEDS ORDERED: hydrALAZINE 20 MG/1 ML INJ IV PRN (21:56)
[2021-11-19] MEDS ORDERED: ACETAMINOPHEN 325 MG TAB PO PRN (21:58)
[2021-11-19] MEDS ORDERED: LACTATED RINGERS 1,000 ML IV SCH (22:00)
[2021-11-19] MEDS: NIFEdipine XL 60 MG TAB PO SCH (22:36)
[2021-11-19 23:13] LABS: Bilirubin,Urine NEG (Negative); Blood,Urine NEG (Negative); Color,Urine Yellow (Yellow); Mucus,Urine FEW /HPF; Protein,Urine <15 mg/dL mg/dL (Negative); Urobilinogen,Urine < 2.0 mg/dL (<2.0)
[2021-11-19 23:43] LABS: Amphetamine Screen,Urine PRESUMPTIVE NEGATIVE; Benzodiazepines Screen,Urine PRESUMPTIVE NEGATIVE; Cannabinoid Screen,Urine PRESUMPTIVE NEGATIVE; Cocaine Screen,Urine PRESUMPTIVE NEGATIVE; Methadone Screen,Urine PRESUMPTIVE NEGATIVE; Opiate Screen,Urine PRESUMPTIVE NEGATIVE
[2021-11-20] MEDS: NIFEdipine XL 60 MG TAB PO SCH (10:17)
[2021-11-20 12:38] VITALS: BP 126/83
--- NOTE | 2021-11-20 12:47 | History and Physical Report ---
History of Present Illness Date of examination: 11/20/21 Date of admission: 11/19/21 21:55 Chief complaint: headache, blood pressure History of present illness: Pt is a 31 year old SARAH 04/[birth year]/22 at 18w0d by 17 wk tushar who presents with headache and elevated blood pressure at home. This patient has a h/o chronic hypertension previously on lisinopril until she discovered her in early October when she stopped it. She was given Procardia XL 30 mg by her PCP on November 18, 2021. She took the first dose that evening, but on the morning of November she developed headache. She checked her blood pressure and found it to be elevated and presented to the ED. She has had one visit this week, with finding of oligohydramnios on ultrasound with [facility] appt scheduled for 11/29/21. Her headache has resolved and she is asking to go home and complete her 24 hour urine at home as discussed prior to this hospitalization. Past History Past Medical History: hypertension Past Surgical History: cholecystectomy Family/Genetic History: other (kidney disease ) Social history: - Obstetrical History Expected Date of Delivery: 04/23/22 Actual Gestation: 18 Week(s) 0 Day(s) : 3 Para: 2 Hx # Term Pregnancies: 2 Number of Pregnancies: 0 Spontaneous Abortions: 0 Induced : 0 Number of Living Children: 2 Medications and Allergies Allergies Allergy/AdvReac Type Severity Reaction Status Date / Time No Known Allergies Allergy Verified 11/19/21 16:23 Home Medications Medication Instructions Recorded Confirmed Last Taken Type Methyldopa (Nf) [Aldomet] 500 mg PO BID 06/10/16 07/01/16 06/29/16 13:00 History 500 Vit No.130/Iron/Folic 1 tab PO DAILY 06/10/16 07/01/16 06/28/16 09:00 History [ Tablet] 1 Ferrous Sulfate [Feosol 325 MG tab] 325 mg PO BID #60 tablet 07/01/16 Unknown Rx Ibuprofen [Motrin 800 MG tab] 800 mg PO Q8HR PRN #30 tablet 07/01/16 Unknown Rx Methyldopa (Nf) [Aldomet] 500 mg PO BID #60 tablet 07/01/16 Unknown Rx oxyCODONE /ACETAMINOPHEN [Percocet 1 tab PO Q6HR PRN #30 tablet 07/01/16 Unknown Rx 5/325] NIFEdipine XL [Procardia Xl] 60 mg PO Q12HR #60 tab 11/20/21 Unknown Rx Active Meds: Active Medications Acetaminophen (Acetaminophen 325 Mg Tab) 650 mg PO Q4H PRN PRN Reason: Headache Last Admin: 11/20/21 10:17 Dose: 650 mg Hydralazine HCl (Hydralazine 20 Mg/1 Ml Inj) 5 mg IV Q30MIN PRN PRN Reason: Hypertension Lactated Ringer's (Lactated Ringers) 1,000 mls @ 125 mls/hr IV DIRECT MARCO Last Admin: 11/20/21 01:46 Dose: 125 mls/hr Nifedipine (Nifedipine Xl 60 Mg Tab) 60 mg PO Q12HR [facility] Last Admin: 11/20/21 10:17 Dose: 60 mg Review of Systems All systems: negative - Vital Signs Vital signs: Vital Signs Temp Pulse Resp BP Pulse Ox 98.6 F 99 H 14 172/100 100 11/19/21 16:18 11/19/21 16:18 11/19/21 16:18 11/19/21 16:18 11/19/21 16:18 Temp Pulse Resp BP Pulse Ox 97.9 F 96 H 16 126/83 97 11/20/21 07:59 11/20/21 12:37 11/20/21 07:59 11/20/21 12:37 11/20/21 12:36 - Physical Exam Breasts: Positive: deferred Abdomen: Positive: soft (gravid ) Uterus: Positive: enlarged (gravid ) Extremities: Positive: normal - Obstetrical FHR: auscultation normal Uterine Tone Measurement Phase: Resting Results Result Diagrams: 11/19/21 19:11 11/19/21 19:11 Abnormal lab results 11/19/21 11/19/21 11/19/21 Range/Units 19:11 19:11 19:11 WBC 16.3 H (4.5-11.0) K/mm3 RBC 5.38 H (3.65-5.03) M/mm3 Hgb 15.4 H (10.1-14.3) gm/dl Hct 47.6 H (30.3-42.9) % Seg Neuts % (Manual) 87.0 H (40.0-70.0) % Lymphocytes % (Manual) 12.0 L (13.4-35.0) % Seg Neutrophils # Man 14.2 H (1.8-7.7) K/mm3 INR 0.82 L (0.87-1.13) Sodium 132 L (137-145) mmol/L Potassium 5.2 H (3.6-5.0) mmol/L Chloride 94.7 L (98-107) mmol/L Creatinine 0.4 L (0.6-1.2) mg/dL Total Protein 8.4 H (6.3-8.2) g/dL All other labs normal. Assessment and Plan A: IUP at 18w0d Chronic Hypertension now Procardia XL 60 mg BID Headache resolved P: Discharge home with follow up in office on Monday11/22/21
--- NOTE | 2021-11-20 12:53 | Short Stay Summary ---
Short Stay Documentation Date of service: 11/20/21 - History H&P: dictated Social history: - Allergies and Medications Current Medications: Allergies No Known Allergies Allergy (Verified 11/19/21 16:23) Home Medications Medication Instructions Recorded Confirmed Last Taken Type Methyldopa (Nf) [Aldomet] 500 mg PO BID 06/10/16 07/01/16 06/29/16 13:00 History 500 Vit No.130/Iron/Folic 1 tab PO DAILY 06/10/16 07/01/16 06/28/16 09:00 History [ Tablet] 1 Ferrous Sulfate [Feosol 325 MG tab] 325 mg PO BID #60 tablet 07/01/16 Unknown Rx Ibuprofen [Motrin 800 MG tab] 800 mg PO Q8HR PRN #30 tablet 07/01/16 Unknown Rx Methyldopa (Nf) [Aldomet] 500 mg PO BID #60 tablet 07/01/16 Unknown Rx oxyCODONE /ACETAMINOPHEN [Percocet 1 tab PO Q6HR PRN #30 tablet 07/01/16 Unknown Rx 5/325] NIFEdipine XL [Procardia Xl] 60 mg PO Q12HR #60 tab 11/20/21 Unknown Rx Active Medications Acetaminophen (Acetaminophen 325 Mg Tab) 650 mg PO Q4H PRN PRN Reason: Headache Last Admin: 11/20/21 10:17 Dose: 650 mg Hydralazine HCl (Hydralazine 20 Mg/1 Ml Inj) 5 mg IV Q30MIN PRN PRN Reason: Hypertension Lactated Ringer's (Lactated Ringers) 1,000 mls @ 125 mls/hr IV DIRECT MARCO Last Admin: 11/20/21 01:46 Dose: 125 mls/hr Nifedipine (Nifedipine Xl 60 Mg Tab) 60 mg PO Q12HR [facility]CO Last Admin: 11/20/21 10:17 Dose: 60 mg - Physical exam Breasts: deferred - Brief post op/procedure progress note Condition: stable - Hospital course Hospital course: This patient was admitted with headache and elevated blood pressure is an 18 weeks . She was started on Procardia XL 60 mg twice daily with normali zation in her blood pressure. Her headache resolved. An administrative error was noted with an incorrect documentation of the start time of the 24-hour urine collection. The patient asked to complete the 24-hour urine outpatient. She will be discharged home with a new prescription for Procardia XL 60 mg every 12 with follow-up in 2 days in the office. - Disposition Condition at discharge: Stable Disposition: 01 HOME / SELF CARE / HOMELESS - Discharge Diagnoses (1) Second trimester Status: Acute (2) Hypertension affecting Status: Acute Qualifiers: Trimester: second trimester Qualified Code(s): O16.2 - Unspecified maternal hypertension, second trimester Short Stay Discharge Plan Activity: no restrictions Weight Bearing Status: Full Weight Bearing Diet: regular Follow up with: AVA FERGUSON MD [Primary Care Provider] - 3-5 Days ERICA DOBBS MD [Staff Physician] - 11/22/21 Prescriptions: NIFEdipine XL [Procardia Xl] 60 mg PO Q12HR #60 tab
--- NOTE | 2021-11-23 12:12 | Electrocardiograph Report ---
[facility] Test Date: 2021-11-19 Test Time: 18:37:01 Pat Name: PAULY OLIVARES Department: Room: 2004 06 Gender: F [employer] Operator: HEIKE : 1990 Requested By: AIDE SIERRA Order Number: [id number] Reading MD: Saniya Bradley Measurements Intervals Coin Rate: 95 P: 71 CT: 154 QRS: 42 QRSD: 86 T: 4 QT: 377 QTc: 474 Interpretive Statements Sinus rhythm No previous ECG available for comparison Electronically Signed On 11-23-2021 12:12:24 EDT by Saniya Bradley
== END 2021-11-20 13:13 | disposition home or self-care (01) ==
LOC: ED 15:58 → 3A 21:55 → LD 11-20 00:11
PROVIDERS: ADMIT Obstetrics & Gynecology; ATTEND Obstetrics & Gynecology
DX: O26.892 Other specified pregnancy related conditions, second trimester (principal); R51.9 Headache, unspecified; O16.2 Unspecified maternal hypertension, second trimester; O10.912 Unspecified pre-existing hypertension complicating pregnancy, second trimester; Z3A.18 18 weeks gestation of pregnancy; Z90.49 Acquired absence of other specified parts of digestive tract; Z79.899 Other long term (current) drug therapy
CPT/HCPCS: 36415; 80053; 80307; 81001; 83880; 85025; 85610; 85730; 93005; 96361; 96374; 96375; 99284; G0378; J2405; J3490; J7030; J7120; 85007